=== PATIENT | female | born 2000 | race Caucasian/White ===

== ENCOUNTER 2019-07-04 16:53 | Outpatient (REF) | payer SELFPAY ==
[2019-07-04 22:36] LABS: *AMPHETAMINES SCREEN URINE Negative (Negative); *BARBITURATES SCREEN URINE Negative (Negative); *BENZODIAZEPINES SCREEN URINE Negative (Negative); Cannabinoids THC POSITIVE (Negative); Cocaine Screen,Urine Negative (Negative); METHADONE URINE SCREEN Negative (Negative); OPIATES URINE SCREEN Negative (Negative)
[2019-07-04 22:44] LABS: Tricyclic Antidepressants Negative (Negative)
== END 2019-07-04 17:13 ==
LOC: LBN 16:53
PROVIDERS: Visit Provider Advanced Practice Midwife
DX: Z34.93 Encounter for supervision of normal pregnancy, unspecified, third trimester (principal); Z36.85 Encounter for antenatal screening for Streptococcus B
CPT/HCPCS: 80307; 87081

== ENCOUNTER 2019-07-05 12:12 | Outpatient (CLI) | payer SELFPAY ==
[2019-07-05 12:35] LABS: HCT 35.3 % (36.0-46.0); HGB 11.8 g/dL (12.0-15.5); Mean Corp. HGB Concentration 33.4 g/dL (32.0-36.0); Mean Corpuscular Hemoglobin 32.1 pg (27.0-33.0); Mean Corpuscular Volume 95.9 fL (80-95); Mean Platelet Volume 10.1 fL (8.0-11.0); Platelet Count 269 x1000/uL (130-400); RBC 3.68 m/cumm (4.00-5.20); RBC Distribution Width 12.4 % (11.7-14.6); White Blood Cell Count 6.68 k/cumm (4.4-10.8)
== END 2019-07-05 12:32 ==
PROVIDERS: Visit Provider Advanced Practice Midwife
DX: Z34.93 Encounter for supervision of normal pregnancy, unspecified, third trimester (principal); Z01.84 Encounter for antibody response examination
CPT/HCPCS: 36415; 85027; 86850; 86900; 86901

== ENCOUNTER 2019-07-14 01:25 | Outpatient (CLI) | payer SELFPAY ==
--- NOTE | 2019-07-14 12:59 | DI.US_ITS ---
EXAM: US OB SHABANA AND WEIGHT CLINICAL HISTORY: SIZE LESS THAN DATES, 026.843 TECHNIQUE: Ultrasound performed using standard protocol. COMPARISON: No exams were available for comparison FINDINGS: There is a single living intrauterine gestation. Estimated sonographic age is 34 weeks 4 days. Dating based on the femur length is 32 weeks 1 day. This date is 2-3 weeks less than the other biome try variables. The fetus is in the cephalic presentation. heart rate is 130 beats per minute. Estimated weight is 2442 grams, which is the 4th percentile. Amniotic fluid index is 13.8 centimeters. Visually, amniotic fluid appears within normal limits. The placenta is posterior and fundal. No evidence of a previa is present. Umbilical artery measurements are within normal limits. IMPRESSION: Single living intrauterine gestation. Estimated sonographic age is 34 weeks 4 days. Femur length dating at 32 weeks 1 day. Estimated weight is at the 4th percentile.
== END 2019-07-14 01:45 ==
PROVIDERS: Visit Provider Advanced Practice Midwife
DX: O26.843 Uterine size-date discrepancy, third trimester (principal); Z3A.34 34 weeks gestation of pregnancy
CPT/HCPCS: 76816

== ENCOUNTER 2019-07-17 07:44 | Outpatient (CLI) | payer SELFPAY | END 2019-07-17 08:04 | PROVIDERS: Visit Provider Advanced Practice Midwife | DX: O36.5930 Maternal care for other known or suspected poor fetal growth, third trimester, not applicable or unspecified (principal); Z3A.38 38 weeks gestation of pregnancy | CPT/HCPCS: 59025 ==

== ENCOUNTER 2019-07-20 08:33 | Outpatient (CLI) | payer SELFPAY | END 2019-07-20 08:53 | PROVIDERS: Visit Provider Advanced Practice Midwife | DX: O36.5930 Maternal care for other known or suspected poor fetal growth, third trimester, not applicable or unspecified (principal); Z3A.38 38 weeks gestation of pregnancy | CPT/HCPCS: 59025 ==

== ENCOUNTER 2019-07-24 00:47 | Outpatient (CLI) | payer SELFPAY ==
--- NOTE | 2019-07-24 11:18 | DI.US_ITS ---
EXAM: US OB SHABANA UMBILICAL ARTERY CLINICAL HISTORY: IUGR, Z34.90 SUPERVISION NORMAL , POOR GROWTH O36.5990 TECHNIQUE: Ultrasound performed using standard protocol. COMPARISON: US OB SHABANA WEIGHT from 07/14/2019 FINDINGS: There is a single intrauterine gestation. The fetus is in the cephalic presentation. heart ra te is 149 beats per minute. biometry and anatomy were not performed during this examination. The placenta is posterior without evidence of previa. Amniotic fluid index is 10.6 centimeters. Visually the amniotic fluid appears within normal limits. The umbilical artery S/D ranges from 2 to 2.1. The range from the 50th percentile to the 95th percen tile is 2.23-3.22. Umbilical artery RI ranges from 0.5-0.52. The range from the 50th percentile to the 95th percentile is 0.54-0.69. These indices are less than 50th percentile.
== END 2019-07-24 01:07 ==
PROVIDERS: Visit Provider Advanced Practice Midwife
DX: O36.5993 Maternal care for other known or suspected poor fetal growth, unspecified trimester, fetus 3 (principal)
CPT/HCPCS: 76816; 76820

== ENCOUNTER 2019-07-28 07:38 | Outpatient (CLI) | payer SELFPAY | END 2019-07-28 07:58 | PROVIDERS: Visit Provider Advanced Practice Midwife | DX: O36.5930 Maternal care for other known or suspected poor fetal growth, third trimester, not applicable or unspecified (principal); Z3A.39 39 weeks gestation of pregnancy | CPT/HCPCS: 59025 ==

== ENCOUNTER 2019-08-01 09:52 | Outpatient (CLI) | payer SELFPAY ==
[2019-08-01 11:13] LABS: HGB 11.3 g/dL (12.0-15.5); Mean Corp. HGB Concentration 32.3 g/dL (32.0-36.0); Mean Corpuscular Hemoglobin 30.8 pg (27.0-33.0); Mean Corpuscular Volume 95.4 fL (80-95); Mean Platelet Volume 10.4 fL (8.0-11.0); Platelet Count 222 x1000/uL (130-400); RBC 3.67 m/cumm (4.00-5.20); RBC Distribution Width 13.6 % (11.7-14.6); White Blood Cell Count 6.76 k/cumm (4.4-10.8)
[2019-08-01 11:18] LABS: ALT 10 U/L (14-59); AST 11 U/L (15-37); Albumin 2.3 g/dL (3.4-5.0); Alkaline Phosphatase 145 U/L (46-116); Anion Gap 8.2 mmol/L (3-11); BUN 9 mg/dL (7-18); Bilirubin, Total 0.1 mg/dL (0.2-1.0); CO2 25.8 mmol/L (21.0-32.0); CREATININE 0.57 mg/dL (0.55-1.02); Calcium 8.5 mg/dL (8.5-10.1); Chloride 105 mmol/L (98-107); Glucose 73 mg/dL (74-106); Sodium 139 mmol/L (136-145); Total Protein 6.2 g/dL (6.4-8.2)
[2019-08-01 11:31] LABS: Uric Acid 5.2 mg/dL (2.6-6.0)
[2019-08-01 11:38] LABS: PROTEIN 12.6 mg/dL
[2019-08-01 12:07] LABS: COMMENT (LAB VIEW ONLY) 51.27 mg/dL; Prot/Crea Ur Ratio 0.24
[2019-08-03 16:02] LABS: Hepatitis C Ab w Rflx HCV PCR Negative (Negative)
== END 2019-08-01 10:12 ==
PROVIDERS: Visit Provider Advanced Practice Midwife
DX: Z34.90 Encounter for supervision of normal pregnancy, unspecified, unspecified trimester (principal); O36.5930 Maternal care for other known or suspected poor fetal growth, third trimester, not applicable or unspecified; O26.893 Other specified pregnancy related conditions, third trimester; R03.0 Elevated blood-pressure reading, without diagnosis of hypertension
CPT/HCPCS: 36415; 80053; 85027; 86803; 59025; 82565; 84156; 84550

== ENCOUNTER 2019-08-04 07:27 | Outpatient (CLI) | payer SELFPAY | END 2019-08-04 07:47 | PROVIDERS: Visit Provider Advanced Practice Midwife | DX: O48.0 Post-term pregnancy (principal); Z3A.40 40 weeks gestation of pregnancy | CPT/HCPCS: 59025 ==

== ENCOUNTER 2019-08-07 14:46 | Outpatient (CLI) | payer SELFPAY | END 2019-08-07 15:06 | PROVIDERS: Visit Provider Advanced Practice Midwife | DX: O48.0 Post-term pregnancy (principal); Z3A.41 41 weeks gestation of pregnancy | CPT/HCPCS: 76815; 59025 ==

== ENCOUNTER 2019-08-07 17:55 | Inpatient (IN) | payer SELFPAY ==
[2019-08-07] MEDS: miSOPROStol 25 MCG TAB PO (18:25)
[2019-08-07 18:44] LABS: HCT 32.7 % (36.0-46.0); Mean Corp. HGB Concentration 33.6 g/dL (32.0-36.0); Mean Corpuscular Hemoglobin 31.5 pg (27.0-33.0); Mean Corpuscular Volume 93.7 fL (80-95); Mean Platelet Volume 10.3 fL (8.0-11.0); Platelet Count 220 x1000/uL (130-400); RBC 3.49 m/cumm (4.00-5.20); RBC Distribution Width 13.5 % (11.7-14.6); White Blood Cell Count 9.92 k/cumm (4.4-10.8)
[2019-08-07 18:56] LABS: ALT 11 U/L (14-59); AST 12 U/L (15-37); Albumin 2.8 g/dL (3.4-5.0); Alkaline Phosphatase 163 U/L (46-116); BUN 13 mg/dL (7-18); Bilirubin, Total 0.2 mg/dL (0.2-1.0); Calcium 8.8 mg/dL (8.5-10.1); Chloride 102 mmol/L (98-107); Glucose 105 mg/dL (74-106); Potassium 3.3 mmol/L (3.5-5.1); Sodium 137 mmol/L (136-145); Total Protein 6.8 g/dL (6.4-8.2)
[2019-08-07] MEDS: Zolpidem 5 MG TAB 10 MG PO (23:05)
[2019-08-08] MEDS: miSOPROStol 25 MCG TAB PO ×2 (02:10→06:39)
[2019-08-08] MEDS: Lactated Ringers 1,000 ML 999 ML IV (06:30)
[2019-08-08] MEDS: FentaNYL/ROPIvacaine 2 mcg/ml and 0.1% 200 ML CADD Cassette EP (07:40)
[2019-08-08] MEDS: Lactated Ringers 1,000 ML 125 ML IV (10:30)
[2019-08-08] MEDS: Hamamelis Leaf/Glycerin 100 EACH BOX PR (12:51)
[2019-08-08] MEDS: Oxytocin 10 UNITS/ML VIAL IM (12:52)
[2019-08-08] MEDS: Acetaminophen 325 MG TAB 650 MG PO (17:11)
[2019-08-08] MEDS: Ibuprofen 600 MG TAB PO (17:12)
[2019-08-10 06:20] LABS: HCT 32.3 % (36.0-46.0); HGB 10.4 g/dL (12.0-15.5); Mean Corp. HGB Concentration 32.2 g/dL (32.0-36.0); Mean Corpuscular Hemoglobin 30.6 pg (27.0-33.0); Platelet Count 270 x1000/uL (130-400); RBC Distribution Width 13.9 % (11.7-14.6); White Blood Cell Count 7.79 k/cumm (4.4-10.8)
[2019-08-10 06:37] LABS: Uric Acid 4.9 mg/dL (2.6-6.0)
[2019-08-10 06:40] LABS: Albumin 2.5 g/dL (3.4-5.0); Alkaline Phosphatase 120 U/L (46-116); BUN 10 mg/dL (7-18); Bilirubin, Total 0.2 mg/dL (0.2-1.0); CREATININE 0.53 mg/dL (0.55-1.02); Calcium 8.3 mg/dL (8.5-10.1); Chloride 106 mmol/L (98-107); Glucose 78 mg/dL (74-106); Potassium 3.7 mmol/L (3.5-5.1); Sodium 141 mmol/L (136-145); Total Protein 6.1 g/dL (6.4-8.2)
[2019-08-10 06:41] LABS: ALT 17 U/L (14-59); AST 22 U/L (15-37); Anion Gap 7.9 mmol/L (3-11); CO2 27.1 mmol/L (21.0-32.0)
== END 2019-08-10 11:00 | disposition home or self-care (01) | DRG 806 ==
PROVIDERS: Advanced Practice Midwife; Admitting Provider Advanced Practice Midwife; Visit Provider Advanced Practice Midwife
DX: O69.81X0 Labor and delivery complicated by cord around neck, without compression, not applicable or unspecified (principal); O99.324 Drug use complicating childbirth; Z37.0 Single live birth; O48.0 Post-term pregnancy; Z3A.41 41 weeks gestation of pregnancy; O13.4 Gestational [pregnancy-induced] hypertension without significant proteinuria, complicating childbirth; O99.344 Other mental disorders complicating childbirth; O99.334 Smoking (tobacco) complicating childbirth; F32.9 Major depressive disorder, single episode, unspecified; F17.210 Nicotine dependence, cigarettes, uncomplicated; F12.10 Cannabis abuse, uncomplicated; Z67.20 Type B blood, Rh positive
CPT/HCPCS: 36415; 80053; 85027; 86850; 86900; 86901; 84550; J2590; J3490

== ENCOUNTER 2021-02-13 10:05 | Inpatient (IN) | payer MEDICAID, SELFPAY ==
[2021-02-13] VITALS (37 sets, daily range): BP systolic 126–181; BP diastolic 68–100; PULSE 49–84; RESP 18–22; TEMP 36.6–36.9; O2SAT 85–100; BMI 27.8
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
--- NOTE | 2021-02-13 10:42 | W.PM.OBHPL1 ---
Date of service: 02/13/21 Time of Service: 10:30 Assessment and Plan Assessment and plan (1) Insufficient care in third trimester: Start date: 02/13/21 Start time: 10:49 Status: Acute Assessment and plan: will obtain all labs with lab draw, send urine for GC CT, pro/creat ratio and UDS as well as a clean catch for urine culture. Records release for any labs and or US sent by nursing to [facility]. Will notify MD relations coordinator of patient arrival and risks. Will notify Pediatric provider of patient arrival and insufficient care. GBS culture obtained.BRET (2) : Status: Acute (3) History of gestational hypertension: Start date: 02/13/21 Start time: 10:51 Status: Acute Assessment and plan: Will get pre-eclampsia labs as well as monitor BP. Denies CASTANO, visual disturbance or epigastric pain.BRET OB-HPI Labor/Delivery History of Present Illness Reason for Visit: Irregular Uterine Contractions Chief Complaint: Uterine Contractions. Comments: Ester Heck presents to [facility] in labor. She reports that she had an US at approximately 18 weeks at [place] and very little other care due to no car for transportation. She did not have any lab work done this . She reports her due date at 02/12/21. Reports contractions began at 0600. No ROM or show. Baby has been active. She has a history of GHTN for which she was induced and delivered a live baby in 2018 here at [facility]. Her partner, Henry is with her today and appears supportive. Her plan is to have epidural in labor.BRET History of Present Assessment: No Care Informed Consent Informed Consent: Other (agrees to labs for care) Review of Systems All systems reviewed & are unremarkable except as noted in HPI and below [facility] Medical History (Updated 02/13/21 @ 10:49 by Tina Greenfield CNM) Family history of spina bifida History of anxiety History of depression Marijuana use Stopped use completely in last month Vertebral artery dissection Family History (Updated 07/14/19 @ 15:38 by Tina Sharma CNM) Father Substance abuse Gout Mother Substance abuse Mother Neural tube defect Other Family history of spina bifida Social History (Updated 07/04/19 @ 16:37 by Linnea Pérez) Smoking/Tobacco Use Status: Former Tobacco Use Second Hand Exposure: Yes Smoking risk assessment performed?: Yes Alcohol Intake: former Substance use type: marijuana Counseling given: Yes History History 2 Para 1 Hx # Term Pregnancies 1 Multiple births 0 Hx # Pregnancies 0 Ectopic pregnancies 0 AB induced 1 Hx Number of Living Children 1 AB spontaneous 0 Past Pregnancies Del. Date GA/Weeks # Outcome Route Wgt Sex Labor Lgth Anesthesia Location Prov Complic 08/08/19 41 No Successful vaginal 6 lb 5 oz Male 5 hrs 15 min regional [facility] Scott Meds Allergies and Home Medications Allergies Allergy/AdvReac Type Severity Reaction Status Date / Time No Known Allergies Allergy Verified 08/14/19 11:17 Home Medications Medication Instructions Recorded Confirmed Type vitamin with calcium 1 tab PO DAILY #90 tab 07/13/19 08/14/19 Rx no.72-iron 27 mg-folic acid 1 mg tablet norethindrone (contraceptive) 0.35 0.35 mg PO DAILY #84 tab 08/10/19 08/14/19 Rx mg tablet Exam Physical Exam Vital signs: Pulse BP Pulse Ox 66 142/93 H 99 02/13/21 10:34 02/13/21 10:32 02/13/21 10:34 Vital Signs Reviewed: Yes Constitutional Constitutional: mild distress Comments: working well with contractions, plans epidural once IV site is obtained.KH Detailed Labor and Delivery Exam Dilation: 6 Effacement (%): 90 station: -2 Cervix position: posterior Consistency: soft Paz Score: Cervical Points Exam 0 1 2 3 Dilation Closed 1-2cm 3-4 cm 5-6cm Effacement 0-30% 40-50% 60-70% 80% Consistency Firm Medium Soft Station -3 -2 -1,0 +1,+2 Position Posterior Mid Anterior PAZ Score(Cervical Ripeness Score): 9 Amniotic Membrane Status: Intact Monitor Mode: External Contraction Frequency(min): 3-5 Contraction Duration(sec): 60-90 Contraction Intensity: Moderate Fetus A Heart Rate Baseline: 110 Monitor Accelerations: 10 X 10 Monitor Decelerations: None Variability: Moderate (6-25 BPM) Presentation: Cephalic Categories: Category I Est. Weight: 6 lb HEENT Exam HEENT Exam: Normal Neck Exam Neck Exam: Normal Chest/Brest/Axilla Exam Chest Exam: Normal Breast Exam Breast Exam: Normal Respiratory Exam Respiratory Exam: Normal Cardiovascular Exam Cardiovascular Exam: Abnormal (mild BP elevation on arrival) Abdominal Exam Abdominal Exam: Normal Rectal Exam Rectal Exam: Not Done Exam Exam: Normal Extremities Exam Extremities Exam: Normal Back/Spine/Pelvis Exam Back Exam: Normal Pelvis Adequate: Yes Skin Exam Skin Exam: Normal Neurological Exam Neurological Exam: Normal Psychiatric Exam Psychiatric Exam: Normal Risk Assessment Risk for Shoulder Dystocia Historical/Initial OB: NEGATIVE FOR: Pelvic Abnormality, Pre- BMI>30, Previous Shoulder Dystocia or Previous Macrosomia 40 Weeks: NEGATIVE FOR: EFW> 4500 gms, Maternal Weight Gain >40lb or Post Dates Increased Risk?: No Date/Initial: 02/13/21 Delivery Plan @ 40 wks: vaginal delivery. Risk for Pre-Eclampsia Date Initiated/Initials: presents full term in labor, no ASA done in Yes, if one or more: POSTIVE FOR: Hx Pre-E/Gest HTN Yes, if 2 or more: NEGATIVE FOR: Nulliparity, Age>= 35 yrs, >10yr btwn pregnancies, BMI>30, ethinicty, Mother/Sister w/ Pre-E or Previous IUGR Risk for Post- Hemorrhage Initial: NEGATIVE FOR: Multiple Gestation, Previous PPH, Known Clotting Deficiency, Grand Multiparity or Anticoagulation At Risk?: Yes Interventions: insufficient care and history of GHTN Counseled re: Active Management: Yes Date/Initials: 02/13/21 Risks Reviewed Risks Reviewed Upon Admission: Yes
[2021-02-13 11:12] LABS: Source Nasal/Nares
[2021-02-13 11:13] LABS: HCT 36.5 % (36.0-46.0); HGB 12.2 g/dL (11.2-15.7); MCH 30.9 pg (27.0-33.0); MCHC 33.4 % (32.0-36.0); MCV 92.4 fL (80-95); MPV 10.7 fL (8.0-11.0); Platelet Count 245 10^3/uL (130-400); RBC 3.95 10^6/uL (3.93-5.22); RDW 13.8 % (11.7-14.6); RDW-SD 46.8 fL; WBC 7.35 10^3/uL (4.4-10.8)
--- NOTE | 2021-02-13 11:14 | W.PM.OBNL1 ---
Date of service: 02/13/21 Time of Service: 11:14 Informed Consent Informed Consent: Other (agrees to labs for care) Contractions Monitor Mode: External Contraction Frequency(min): 2-4 Contraction Duration(sec): 60-90 Intensity: Moderate/Strong Fetus A Monitor: External (US) Heart Rate Baseline: 110 Accelerations: Absent Decelerations: None Amniotic Membrane Status: Intact Assessment and Plan Assessment and plan (1) Active labor at term: Start date: 02/13/21 Start time: 11:18 Status: Acute Assessment and plan: once CBC results are back, plan epidural and reassess for cervical changes.BRET Objective Temp Pulse Resp BP Pulse Ox 97.9 F 61 22 142/93 H 99 02/13/21 10:35 02/13/21 10:35 02/13/21 10:35 02/13/21 10:35 02/13/21 10:35 Laboratory Results Uric Acid Cancelled 02/13/21 10:39 Lactate Dehydrogenase Cancelled 02/13/21 10:39 COVID-19 Source Nasal/Nares 02/13/21 10:50 Subjective Interval history since last seen: requests epidural, awaiting CBC results but will notify anesthesia. Dr. Ibrahim is aware and agrees to this plan. IV bolus infusing. Additionally, we recieved records of 2 visits from last provider and indication that US was done at 8w3d that established RENETTA of 02/12/21. No labs obtained. Nursing will call to request hard copy of anatomy US. Patient reports her last baby was 6lb 5oz. BRET
[2021-02-13 11:22] LABS: ALT 22 U/L (14-59); AST 18 U/L (15-37); Albumin 2.7 g/dL (3.4-5.0); Alkaline Phosphatase 221 U/L (46-116); Anion Gap 11.1 mmol/L (3-11); BUN 10 mg/dL (7-18); Bilirubin, Total 0.3 mg/dL (0.2-1.0); CO2 22.9 mmol/L (21.0-32.0); CREATININE 0.6 mg/dL (0.55-1.02); Calcium 8.6 mg/dL (8.5-10.1); Chloride 102 mmol/L (98-107); Glucose 76 mg/dL (74-106); LDH 162 U/L (81-234); Potassium 3.9 mmol/L (3.5-5.1); Sodium 136 mmol/L (136-145); Total Protein 6.3 g/dL (6.4-8.2); Uric Acid 4.7 mg/dL (2.6-6.0)
[2021-02-13] MEDS: fentaNYL 100 MCG/2 ML VIAL IT (11:25)
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
[2021-02-13 12:06] LABS: COVID-19 PCR Negative (Negative)
--- NOTE | 2021-02-13 12:14 | W.ANESPROC ---
Intrathecal Analgesia Date Performed: 02/13/21 Procedure Time: 12:00 Requesting Provider: Jazz Procedure Location: Obstetrics Reason Performed: Labor Intrathecal Analgesia Standard Monitors Applied: Blood Pressure, SpO2 and See EMR for corresponding vital signs Patient Position: Sitting Timeout Performed: Yes Sedation Given (Indicate Dose Given): No Sedation given Patient Mental Status: Awake Sterility: Hand Hygiene, Surgical Cap, Surgical Mask, Sterile Gloves, Sterile Drape/Sheet and Eye Protection Placement Site: L3-L4 Interspace Spinal Needle Type: Sprotte 25 Gauge Needle Length: 3.5 Inch Spinal Procedure: Site Prepped, Sterile Drape Placed, 1% Lidocaine to skin and subcutaneous tissue with 25G needle, Introducer Needle Used, Spinal Needle Placed, Negative Heme, Positive CSF Flow and Medication Injected Paresthesia: Left Paresthesia Duration: Transient Spinal Local Anesthetic (Indicate Dose Given): Bupivacaine 0.25% PF (ml) Dose:: 1 mL Additives (Indicate Dose Given): Fentanyl PF Dose:: 20 mcg and Duramorph PF Dose:: 150 mcg Ultrasound: Not Used Number of Attempts (See previous attempts in note section): 3 Procedure Tolerated: No Complications Procedure Outcome: Successful Procedure Comment: Attempt x2 interspaces by BEAU Miguel, attempt x1 intersapce Megan Milner CRNA with repositiong with success. Clear, free flowing CSF. Performed By: Megan Milner
--- NOTE | 2021-02-13 12:34 | W.PM.OBNL1 ---
Date of service: 02/13/21 Time of Service: 12:34 Informed Consent Informed Consent: Other (agrees to labs for care) Pelvic Exam Dilation: 9 Effacement (%): 100 station: 0 Cervix Position: mid Consistency: soft Vaginal Exam Presentation: Cephalic Contractions Monitor Mode: External Contraction Frequency(min): 2-3 Contraction Duration(sec): 60 Intensity: Moderate/Strong Fetus A Monitor: External (US) Heart Rate Baseline: 110 Variability: Moderate (6-25 BPM) Categories: Category I Accelerations: 10 X 10 Decelerations: None Assessment and Plan Assessment and plan (1) Active labor at term: Start date: 02/13/21 Start time: 12:36 Status: Acute Assessment and plan: continue present management, expect NVD.KH (2) History of gestational hypertension: Start date: 02/13/21 Start time: 12:37 Status: Acute Assessment and plan: labs to date are WNL, no urine obtained yet. Will plan straight cath at time of delivery for urine. Objective Abnormal lab results 02/13/21 Range/Units 10:34 Anion Gap 11.1 H (3-11) mmol/L Alkaline Phosphatase 221 H (46-116) U/L Total Protein 6.3 L (6.4-8.2) g/dL Albumin 2.7 L (3.4-5.0) g/dL Temp Pulse Resp BP Pulse Ox 98.4 F 56 L 20 126/84 99 02/13/21 12:15 02/13/21 12:33 02/13/21 12:15 02/13/21 12:33 02/13/21 12:32 Laboratory Results WBC 7.35 10^3/uL (4.4-10.8) 02/13/21 10:50 RBC 3.95 10^6/uL (3.93-5.22) 02/13/21 10:50 Hgb 12.2 g/dL (11.2-15.7) 02/13/21 10:50 Hct 36.5 % (36.0-46.0) 02/13/21 10:50 MCV 92.4 fL (80-95) 02/13/21 10:50 MCH 30.9 pg (27.0-33.0) 02/13/21 10:50 MCHC 33.4 % (32.0-36.0) 02/13/21 10:50 RDW 13.8 % (11.7-14.6) 02/13/21 10:50 Plt Count 245 10^3/uL (130-400) 02/13/21 10:50 MPV 10.7 fL (8.0-11.0) 02/13/21 10:50 Sodium 136 mmol/L (136-145) 02/13/21 10:34 Potassium 3.9 mmol/L (3.5-5.1) 02/13/21 10:34 Chloride 102 mmol/L (98-107) 02/13/21 10:34 Carbon Dioxide 22.9 mmol/L (21.0-32.0) 02/13/21 10:34 Anion Gap 11.1 mmol/L (3-11) H 02/13/21 10:34 BUN 10 mg/dL (7-18) 02/13/21 10:34 Creatinine 0.6 mg/dL (0.55-1.02) 02/13/21 10:34 Estimated GFR/1.73 m2 >= 60.00 (mL/min/1.73m2) 02/13/21 10:34 Glucose 76 mg/dL (74-106) 02/13/21 10:34 Uric Acid Cancelled 02/13/21 10:39 Calcium 8.6 mg/dL (8.5-10.1) 02/13/21 10:34 Total Bilirubin 0.3 mg/dL (0.2-1.0) 02/13/21 10:34 AST 18 U/L (15-37) 02/13/21 10:34 ALT 22 U/L (14-59) 02/13/21 10:34 Alkaline Phosphatase 221 U/L (46-116) H 02/13/21 10:34 Lactate Dehydrogenase Cancelled 02/13/21 10:39 Total Protein 6.3 g/dL (6.4-8.2) L 02/13/21 10:34 Albumin 2.7 g/dL (3.4-5.0) L 02/13/21 10:34 COVID-19 Source Nasal/Nares 02/13/21 10:50 SARS-CoV-2 (PCR) Negative (Negative) 02/13/21 10:50 Patient ABO/Rh B Positive 02/13/21 10:50 Antibody Screen NEGATIVE 02/13/21 10:50 Vital Signs Reviewed: Yes Subjective Interval history since last seen: much more comfortable since intrathecal was placed. Tolerated procedure well. Still using some nirtous but overall doing very well.KH Interventions Pain Management Interventions: Intrathecial and Nitrous Oxide , using nitrous oxide with good relief in proper fashion after written consent was obtained.KH . Results Hemoglobin/Hematocrit: Hgb 12.2 g/dL (11.2-15.7) 02/13/21 10:50 Hct 36.5 % (36.0-46.0) 02/13/21 10:50 Abnormal Lab Findings: Abnormal Labs 02/13/21 10:34 Anion Gap 11.1 H Alkaline Phosphatase 221 H Total Protein 6.3 L Albumin 2.7 L
[2021-02-13] MEDS: Oxytocin/Normal Saline 30 UNIT/500 ML BAG 95 UNITS IV (13:20)
[2021-02-13 13:28] LABS: PROTEIN 40.7 mg/dL
[2021-02-13 13:30] LABS: COMMENT (LAB VIEW ONLY) 182.81 mg/dL; Prot/Crea Ur Ratio 0.22
--- NOTE | 2021-02-13 13:35 | W.OBDELIVERY ---
Date of service: 02/13/21 Time of Service: 13:36 OB Labor/ Delivery Information Baby A Delivery Delivery Method: Spontaneaous Presentation: Cephalic Vertex Position: Left Occipital Anterior Cord Description-Baby A: 3 Vessels Amniotic Fluid: Clear Estimated Blood Loss: 250 Delivery Outcome: Liveborn Transferred: Remains with Mother Note: Pediatric provider present at delivery due to decreased prison variability prior to pushing and insufficient care. No interventions required at delivery. Providers Nurse Tech Ed Teacher: Tina Greenfield Folder Taper Operator: Charity Gamez Labor/Delivery Information Number of Babies in Womb: 1 Steroids Given: None Reason Steroids Not Administered: N/A Group Beta Strep: Done-Result Unknown Antibiotics Administered: No Blood Type: B+ Varicella Immunity: Not Tested Born En Route: No Maternal Complications: None Shoulder Dystocia: No Note: Following second stage huddle, baby delivers spontaneously over intact perineum, live female. Pediatric provider was present due to insufficient care and decreased variability in tracing prior to pushing. Baby delivered onto Mother's abdomen, skin to skin, with lusty cry noted immediately. 8 at 1 minute and 9 at 5 minutes. Cord was double clamped and then cut by RUFINA Figueroa when pulsations ceased. 3 vessel cord noted. cord bloods obtained. placenta delivers via boyle mechanism, intact shortly after delivery. Pitocin 30 units in 500 cc is infusing per orders. Fundus firms to U-2 with massage. EBL 250cc. sponge, needle and instrument count are correct. Perineum inspected and noted to be intact. Vaginal normal. Baby remains with mother skin to skin for [place] hour. See completed delivery summary for weight. Will monitor VS due to history of GHTN and treat as indicated. Dr. Ibrahim aware of delivery. 20 minutes PP patient has had 3 or more severe range BP's, consult with Dr. Sorto done and will give Hydralazine 5 mg IV now. Stages of Labor Onset of Labor Date: 02/13/21 Onset of Labor Time: 06:00 Placenta Cultured: No Placenta Status: Delivered Baby A Infant Gender: Female Gestational Status: Term (39-41.6 wks)
[2021-02-13 13:46] LABS: *AMPHETAMINES SCREEN URINE Negative (Negative); *BARBITURATES SCREEN URINE Negative (Negative); *BENZODIAZEPINES SCREEN URINE Negative (Negative); Cannabinoids THC Positive (Negative); Cocaine Screen,Urine Negative (Negative); METHADONE URINE SCREEN Negative (Negative); OPIATES URINE SCREEN Negative (Negative)
[2021-02-13 13:47] LABS: Tricyclic Antidepressants Negative (Negative)
--- NOTE | 2021-02-13 14:15 | W.OBDELIVERY ---
OB Labor/ Delivery Information Providers Nurse Log Stacker Operator: Tina Greenfield Crochet Beader: Charity Gamez Nurse: Christiana Nava Labor/Delivery Information Number of Babies in Womb: 1 Steroids Given: None Reason Steroids Not Administered: N/A Group Beta Strep: Done-Result Unknown Antibiotics Administered: No Blood Type: B+ Varicella Immunity: Not Tested Medication in Delivery: Nitrous oxide Maternal Complications: None Shoulder Dystocia: No Stages of Labor Onset of Labor Date: 02/13/21 Onset of Labor Time: 06:00 Complete Dilatation Date: 02/13/21 Complete Dilatation Time: 12:52 Labor - Stage 1 Duration: 0 minutes ROM Baby A: 02/13/21 ROM Baby A: 12:48 ROM Total Time- Baby A: [id number] Delivery Date-Baby A: 02/13/21 Infant Delivery Time-Baby A: 13:15 Labor Stage 2 Duration: 23 minutes Placenta Delivery Date-Baby A: 02/13/21 Placenta Delivery Time-Baby A: 13:19 Labor-Stage 3 Duration: 4 minutes Total Length of Labor-Baby A: 7 hours and 15 minutes Placenta Cultured: No Placenta Status: Delivered Baby A Gender: Female Gestational Status: Term (39-41.6 wks) Gestational Age in Weeks/Days: 40 Weeks and 1 Days Score-1 Minute Interval(Baby A) Heart Rate-1 minute: 100 BPM or Greater Respiratory Effort- 1 minute: Spontaneous/Strong Cry Muscle Tone-1 minute: Active Movement Reflex Response-1 minute: Prompt Response Color-1 minute: Pallor or Cyanosis Total Score-1 minute: 8 Score-5 Minute Interval(Baby A) Heart Rate- 5 minute: 100 BPM or Greater Respiratory Effort-5 minute: Spontaneous/Strong Cry Muscle Tone-5 minute: Active Movement Reflex Response-5 minute: Prompt Response Color-5 minute: Bluish Hands or Feet Total Score- 5 minute: 9
[2021-02-13] MEDS: Ibuprofen 600 MG TAB PO (14:32)
[2021-02-13] MEDS: Dibucaine 1% 28 GM TUBE TP (14:34)
[2021-02-14] MEDS: Ibuprofen 600 MG TAB PO ×2 (07:32→15:10)
[2021-02-14] MEDS: Acetaminophen 325 MG TAB 650 MG PO ×2 (07:33→15:09)
[2021-02-14 08:05] VITALS: BP 149/94; PULSE 60; RESP 18; TEMP 36.7; O2SAT 97
--- NOTE | 2021-02-14 08:55 | OBPPV_ITS ---
Date of service: 02/14/21 Time of Service: 08:20 Assessment and Plan Assessment and plan (1) care following vaginal delivery: Status: Acute Assessment and plan: will discharge to home later today if baby is able to be discharged. Will need to follow up all labs and BP at 2 week PP visit. Planning either IUD or Nuvaring for contraception until FOB has vasectomy done. Given patient education information on both methods and discussed both methods in person this morning.BRET (2) Lactating mother: Status: Acute Assessment and plan: Breast feeding with confidence. BRET (3) Mild hypertension: Status: Acute Assessment and plan: Will review BP at 2 week and 6 week PP visit for possible chronic HTN vs GHTN. Pre-eclampsia labs were all negative and patient has no signs or symptoms of pre-eclampsia. Warning signs reviewed.BRET Subjective Subjective Interval history: Feeling well. Breast feeding without difficulty. Denies CASTANO, visual disturbance or epigastric pain. Reports light lochia and no difficulty voiding. Doing own self care. Hoping to go home later today if baby is able to be discharged.BRET Patient comments: No complaints, Pain well controlled and Tolerating diet Patient's Mood: Happy and cooperative. Dowell baby status: Doing well, Nursing well and Rooming in feeding status: Exclusively breast feeding Exam Physical Exam Vital signs: Temp Pulse Resp BP Pulse Ox 98.2 F 49 L 18 134/83 99 02/13/21 23:37 02/13/21 23:37 02/13/21 23:37 02/13/21 23:37 02/13/21 13:27 Vital Signs Reviewed: Yes Constitutional Constitutional: no acute distress and average body habitus HEENT Exam HEENT Exam: Normal Neck Exam Neck Exam: Not Done Breast Exam normal : Breast Exam: Normal Nipple Exam: Normal Respiratory Exam Respiratory Exam: Normal Cardiovascular Exam Cardiovascular Exam: Normal (mild BP elevations, will review at PP visit in 2 wks. Pre-eclampsia labs neg.BRET) Abdominal Exam Comments: Normal exam. Fundal Exam Fundus: Below Umbilicus and Firm Rectal Exam Rectal Exam: Not Done Exam Patient deferred: external exam and perineal exam Perineum: Normal External: Present normal urethra appearance Extremities Exam Extremity Exam: Normal Back/Spine/Pelvis Exam Back Exam: Not Done Skin Exam Skin Exam: Normal Neurological Exam Neurological Exam: Normal Psychiatric Exam Psychiatric Exam: Normal Results Hemoglobin/Hematocrit: Hgb 12.2 g/dL (11.2-15.7) 02/13/21 10:50 Hct 36.5 % (36.0-46.0) 02/13/21 10:50 Abnormal Lab Findings: Abnormal Labs 02/13/21 02/13/21 10:34 12:52 Anion Gap 11.1 H Alkaline Phosphatase 221 H Total Protein 6.3 L Albumin 2.7 L Ur THC Screen Positive A Additional Findings Results: Most labs are pending as she did not have adequate care and we did all labs on arrival. Will follow up with her on all labs as indicated. BRET
[2021-02-14 09:15] VITALS: BP 136/83
[2021-02-14 10:35] LABS: Hepatitis C Ab w Rflx HCV PCR Negative (Negative)
[2021-02-14 11:22] LABS: Rubella IgG Ab (UVM) Positive (See Note)
[2021-02-14 11:27] LABS: HBs Antibody, Quant <3.1 mIU/mL (See Note); Hepatitis B Surface Ab Negative (See Note)
[2021-02-14 12:11] LABS: HIV-1/2 Ag & Ab Screen Negative (Negative)
[2021-02-14 12:45] LABS: Varicella IgG Antibody Equivocal (See Note)
--- NOTE | 2021-02-14 14:29 | W.PM.OBDISCH ---
Date of service: 02/14/21 Time of Service: 14:29 DS: Diagnosis Discharge Diagnosis (1) care following vaginal delivery: Start date: 02/14/21 Start time: 14:30 Status: Acute Asessment and Plan: Will continue present management. Follow up in 2 weeks for PP check and BP check and then in 6 weeks for PP visit and IUD insertion. (2) Lactating mother: Start date: 02/14/21 Start time: 14:31 Status: Acute Asessment and Plan: Continue present management. (3) Mild hypertension: Start date: 02/14/21 Start time: 14:31 Status: Acute Asessment and Plan: We have reviewed signs and symptoms of pre-eclampsia and when / how to contact a provider technical solutions consultant. Discussed importance of keeping 2 and 6 week PP visits. Discharge Plan Disposition Patient Disposition: HOME Condition: Good Discharge Details Reason For Visit: ACTIVE LABOR Admit Date/Time: 02/13/21 10:33 Admit Provider: Tina Greenfield Attending Provider: Tina Greenfield Primary Care Provider: None,None Hospital Course Hospital Course: spontaneous labor and NVD at 40w1d, insufficient care but normal labor and . Patient has had normal PP course but has had mild BP elevations. We discussed importance of keeping 2 and 6 week PP visits for BP check and to establish contraception, plans IUD, verbalizes understanding. Perineum intact, mild lochia. Negative pre-eclamspia labs and no symptoms. Is aware of signs and symptoms to report. Patient will board here tonight with baby but would like opportunity to leave for periods of time this evening if possible as baby cannot be discharged until tomorrow. Home Meds and New Rx's Prescriptions: New ibuprofen 600 mg Tablet 600 mg PO Q6H PRN PRNQty: 60 RF: 0 cholecalciferol (vitamin D3) [Vitamin D3] 125 mcg (5,000 unit) tablet 125 mcg PO DAILY Qty: 90 RF: 0 Continued PrePlus 27 mg iron- 1 mg tablet 1 tab PO DAILY Qty: 90 RF: 0 Discontinued norethindrone (contraceptive) 0.35 mg tablet 0.35 mg PO DAILY Qty: 84 RF: 3 Discharge Instructions Activity:: Activity as Tolerated Equipment/Supplies:: No Equipment Needed Diet:: As Tolerated Discharge Orders Discharge Orders: Discharge Order (Routine); Ordered 02/14/21 Ordered By: Tina Greenfield OB:DS Summary Summary Vaginal Delivery Method: Spontaneaous Episiotomy Description: None Laceration Description: None Procedures: Baby girl named Denisse 6lb 4oz Contraception Discussed Contraception Discussed: Yes, [place] Infant Gender-Baby A: Female weight: 6 lb 7 oz Disposition of Baby A: Home Status at Discharge Functional status at discharge: independent ambulation Overall status at discharge: patient is back to baseline Mental Status: mental status grossly normal Speech and Movement: speech and movement normal Mood: congruent mood Affect: normal affect Time Spent with Patient providing and/or coordinating discharge services: Greater than 30 minutes Specific discharge activities: discussed contraception options and risks and benefits and importance of PP care in office. Quality: AMI Clinical Trial Participant: No Exam Physical Exam Vital signs: Temp Pulse Resp BP Pulse Ox 98.1 F 60 18 136/83 97 02/14/21 08:05 02/14/21 08:05 02/14/21 08:05 02/14/21 09:15 02/14/21 08:05 Vital Signs Reviewed: Yes Constitutional Constitutional: no acute distress HEENT Exam HEENT Exam: Normal Neck Exam Neck Exam: Not Done Breast Exam Bilateral: Breast Exam: Normal Nipple Exam: Normal Respiratory Exam Respiratory Exam: Normal Cardiovascular Exam Cardiovascular Exam: Normal Abdominal Exam Comments: normal exam Fundal Exam Fundus: Below Umbilicus and Firm Rectal Exam Rectal Exam: Not Done Exam Patient deferred: perineal exam Perineum: Normal Extremities Exam Extremity Exam: Normal Back/Spine/Pelvis Exam Back Exam: Not Done Skin Exam Skin Exam: Normal Neurological Exam Neurological Exam: Normal Psychiatric Exam Psychiatric Exam: Normal [facility] Medical History Family history of spina bifida History of anxiety History of depression Marijuana use Stopped use completely in last month Family History Father Substance abuse Gout Mother Substance abuse Mother Neural tube defect Other Family history of spina bifida Social History Smoking/Tobacco Use Status: Former Tobacco Use Second Hand Exposure: Yes Smoking risk assessment performed?: Yes Alcohol Intake: former Substance use type: marijuana Counseling given: Yes History History 2 Para 1 Hx # Term Pregnancies 1 Multiple births 0 Hx # Pregnancies 0 Ectopic pregnancies 0 AB induced 1 Hx Number of Living Children 1 AB spontaneous 0 Past Pregnancies Del. Date GA/Weeks # Outcome Route Wgt Sex Labor Lgth Anesthesia Location Prov Complic 08/08/19 41 No Successful vaginal 6 lb 5 oz Male 5 hrs 15 min regional [facility] CNM DS: Data Vitals/I&O Vitals and I&O: Vital Signs Temperature 98.1 F 02/14/21 08:05 Pulse 60 02/14/21 08:05 Pulse Rhythm Regular 02/13/21 23:37 Respiratory Rate 18 02/14/21 08:05 Respiratory Depth Normal 02/13/21 16:30 Blood Pressure 136/83 02/14/21 09:15 Blood Pressure Mean 100 02/14/21 09:15 Pulse Oximetry 97 02/14/21 08:05 Oxygen Delivery Method Room Air 02/13/21 10:35 Oxygen Flow Rate 0 02/13/21 10:35 Pain Level 3 02/14/21 08:05 Intake & Output 02/13/21 02/14/21 02/14/21 23:59 11:59 23:59 Intake Total 480 / 1480 Output Total 1150 / 1150 Balance -670 / 330 Intake: Oral 480 / 480 Output: Urine 900 / 900 Output, Blood Loss 250 / 250 Other: Urine Color Dark Red Data Completed and Pending Labs on day of discharge: Labs from last 24 hours 02/13/21 02/13/21 02/13/21 10:45 10:45 10:45 Hep Bs Antibody Negative Hep Bs Antibody, Quant <3.1 Hepatitis C Antibody Negative HIV 1&2 Ag/Ab, 4th Gen Negative Rubella IgG Antibody Positive VZV IgG Antibody Equivocal 02/13/21 10:30 Vaginal/Rectal Group B Streptococcus Culture - Pending Preliminary micro results at discharge 02/13/21 10:30 Group B Streptococcus Culture - Pending Vaginal/Rectal
[2021-02-14 16:07] LABS: Syphilis Total Ab w/Reflex Nonreactive (Nonreactive)
== END 2021-02-14 21:17 | disposition home or self-care (01) | DRG 807 ==
PROVIDERS: Admitting Provider Advanced Practice Midwife; Visit Provider Advanced Practice Midwife
DX: O16.4 Unspecified maternal hypertension, complicating childbirth (principal); Z37.0 Single live birth; O99.344 Other mental disorders complicating childbirth; F41.8 Other specified anxiety disorders; Z3A.40 40 weeks gestation of pregnancy; Z20.822 Contact with and (suspected) exposure to COVID-19
CPT/HCPCS: 80053; 80307; 85027; 86706; 86787; 86803; 86850; 86900; 86901; 87389; 87635; 82565; 83615; 84156; 84550; 86762; 86780; 87081; J3010